=== PATIENT | male | born 1980 | race Caucasian/White ===

== ENCOUNTER 2016-06-26 15:00 | Outpatient (RCR) | payer OTHER | END 2016-06-30 | disposition still patient (30) | LOC: WSOT | DX: Z01.818 Encounter for other preprocedural examination (principal); S62.601D Fracture of unspecified phalanx of left index finger, subsequent encounter for fracture with routine healing; X58.XXXD Exposure to other specified factors, subsequent encounter ==

== ENCOUNTER 2016-07-31 08:00 | Outpatient (RCR) | payer OTHER | END 2016-08-14 16:28 | disposition home or self-care (01) | LOC: WSOT 08:00 | DX: S53.145D Lateral dislocation of left ulnohumeral joint, subsequent encounter (principal); S53.125D Posterior dislocation of left ulnohumeral joint, subsequent encounter; X58.XXXD Exposure to other specified factors, subsequent encounter ==